=== PATIENT | male | born 1955 | race African-American/Black ===

== ENCOUNTER 2021-04-22 08:27 | Emergency (ER) | payer MEDICAID ==
[~2021-04-22] VITALS: Ht 175.3 cm; Wt 54.0 kg
[~2021-04-22 08:27] MED LIST: NITR100C PO; Oxybutynin Chloride PO; POSA200O PO
[2021-04-22] MEDS ORDERED: DIATR MEGLU/DIATRIZOATE SOLN 30ML PO ONE (10:15)
[2021-04-22] MEDS ORDERED: DIATR MEGLU/DIATRIZOATE SOLN 30ML ONE (12:47)
[2021-04-22 14:08] VITALS: BP 120/82
== END 2021-04-22 14:39 ==
LOC: ER 08:46
DX: K94.23 Gastrostomy malfunction (principal); F03.90 Unspecified dementia, unspecified severity, without behavioral disturbance, psychotic disturbance, mood disturbance, and anxiety; E11.9 Type 2 diabetes mellitus without complications; Z87.440 Personal history of urinary (tract) infections
CPT/HCPCS: 74018; 99283; Q9963